=== PATIENT | female | born 1975 | race Caucasian/White ===

== ENCOUNTER 2016-10-21 02:56 | Emergency (ER) | payer MEDICAID ==
[~2016-10-21] VITALS: Ht 157.5 cm; Wt 111.5 kg
[~2016-10-21 02:56] MED LIST: FEXO180T61 PO
[2016-10-21 03:03] VITALS: Ht 157.5 cm; Wt 111.5 kg
[2016-10-21 03:37] LABS: URINE BLOOD (Dip) POC Trace-intact (NEGATIVE)
[2016-10-21] MEDS ORDERED: SOD CHLORIDE 0.9% 1,000 ML IV STA (03:39)
[2016-10-21] MEDS ORDERED: KETOROLAC 15 MG INJ IV STA (03:39)
[2016-10-21] MEDS ORDERED: ONDANSETRON 4 MG INJ IV STA (03:39)
--- NOTE | 2016-10-21 03:54 | ERD ---
ER Documentation Chief Complaint Date/Time DATE: 10/21/16 TIME: 03:49 Chief Complaint epigastric pain w/ vomiting ans diarrhea since 6 hours ago HPI This is a 41-year-old female history of morbid obesity who presents the emergency room with epigastric abdominal pain. She describes approximately 6 hours of symptoms that include multiple episodes of nonbloody nonbilious emesis with loose watery stool and mild cramping periumbilical and epigastric abdominal discomfort. No recent travel, sick contacts, antibiotics. She denies abdominal surgical history other than . No fever chest pain or pleuritic pain. ROS All systems reviewed and are negative except as per history of present illness. Medications Home Meds Active Scripts Ibuprofen* (Motrin*) 800 Mg Tab, 800 MG PO Q6H Y for PAIN AND OR ELEVATED TEMP, #30 TAB Prov:LAURA TARIQ MD 10/21/16 Ondansetron (Ondansetron Odt) 4 Mg Tab.rapdis, 4 MG PO Q6H Y for NAUSEA AND/OR VOMITING, #30 TAB Prov:LAURA TARIQ MD 10/21/16 Dicyclomine Hcl* (Bentyl*) 10 Mg Capsule, 10 MG PO QID Y for abdominal cramping , #30 CAP Prov:LAURA TARIQ MD 10/21/16 Fexofenadine Hcl* (Rosalinda*) 180 Mg Tablet, 180 MG PO DAILY, #30 TAB Prov:MIGUEL LOO NP 04/25/16 Allergies Allergies: Coded Allergies: No Known Allergy (Unverified , 11/26/13) PMhx/Soc History of Surgery: Yes (c-sections) Anesthesia Reaction: No Hx Neurological Disorder: No Hx Respiratory Disorders: No Hx Cardiac Disorders: No Hx Psychiatric Problems: No Hx Miscellaneous Medical Probl: No Hx Alcohol Use: No Hx Substance Use: No Hx Tobacco Use: No Smoking Status: Never smoker FmHx Family History: No diabetes Physical Exam Vitals Vital Signs Date Time Temp Pulse Resp B/P Pulse Ox O2 Delivery O2 Flow Rate FiO2 10/21/16 03:03 98.3 111 20 132/62 99 Physical Exam General: Well developed, well nourished, no acute distress Head: Normocephalic, atraumatic. Eyes: Pupils equally reactive, EOM intact ENT: Moist mucous membranes Neck: Supple, no lymphadenopathy Respiratory: Lungs clear bilaterally, no distress Cardiovascular: RRR, no murmurs, rubs, or gallops Abdominal: Soft, mild epigastric tenderness without rebound or guarding, negative Espino sign, no tenderness to McBurney's point : Deferred MSK: No edema, no unilateral swelling, 5/5 strength Neurologic: Alert and oriented, moving all extremities, normal speech, no focal weakness, no cerebellar signs Skin: No rash Psych: Normal mood Results 24 hrs Laboratory Tests Test 10/21/16 03:37 Bedside Urine pH (LAB) 5.5 Bedside Urine Protein (LAB) 1+ Bedside Urine Glucose (UA) Negative Bedside Urine Ketones (LAB) 1+ Bedside Urine Blood Trace-intact Bedside Urine Nitrite (LAB) Negative Bedside Urine Leukocyte Esterase (L Negative Current Medications Medications (Trade) Dose Ordered Sig/Binta Route PRN Reason Start Time Stop Time Status Last Admin Dose Admin Sodium Chloride (NS) 1,000 ml @ 1,000 mls/hr Q1H STAT IV 10/21/16 03:39 10/21/16 04:38 DC 10/21/16 03:47 Ondansetron HCl (Zofran Inj) 4 mg ONCE STAT IV 10/21/16 03:39 10/21/16 03:43 DC 10/21/16 03:47 Ketorolac Tromethamine (Toradol) 15 mg ONCE STAT IV 10/21/16 03:39 10/21/16 03:43 DC 10/21/16 03:47 Lorazepam (Ativan) 0.5 mg ONCE ONCE IV 10/21/16 04:00 10/21/16 04:01 DC 10/21/16 03:48 Dicyclomine HCl (Bentyl) 10 mg ONCE ONCE IM 10/21/16 04:00 10/21/16 04:01 DC 10/21/16 04:06 Procedures/MDM LAB INTERPRETATION: Negative hCG MEDICAL DECISION MAKING: The patient presents with nausea vomiting diarrhea and abdominal pain. Her abdominal exam is mostly benign. She has no fever. I do not believe this is consistent with acute intra-abdominal process such as biliary colic, choledocholithiasis, pancreatitis, acute appendicitis, bowel obstruction. The patient appears to be anxious which is also contributing to her presentation. Given her benign abdominal exam without fever and most likely viral process I do not believe that laboratory testing is necessary. Additionally no indication for CT imaging. The patient will benefit from symptom control and expectant management of likely viral process. ER COURSE: The patient was given IV fluids, Ativan, Zofran, Toradol, Bentyl. She has improved symptomatology. At this time I believe the patient can be safely discharged home with symptom control. We discussed return precautions for any worsening symptoms, difficulty tolerating oral intake or decreased urine output. I kept the patient and/or family informed of laboratory and diagnostic imaging results throughout the emergency room course. DISPOSITION PLAN: We discussed follow up with the patient's primary care doctor within 24 to 48 hours as needed. We also discussed return to the emergency room for worsening symptoms or worsening condition. Outpatient referral: [None required] Discharge Medications: Zofran, Bentyl, Motrin Departure Diagnosis: Primary Impression: Nausea vomiting and diarrhea Additional Impression: Epigastric abdominal pain Condition: Stable LAURA TARIQ MD Oct 21, 2016 03:54
[2016-10-21] MEDS ORDERED: DICY10CA60 PO (03:55)
[2016-10-21] MEDS ORDERED: ONDA4TAB14 PO (03:55)
[2016-10-21] MEDS ORDERED: IBUP800T25 PO (03:55)
[2016-10-21] MEDS ORDERED: LORAZEPAM 2 MG INJ IV ONE (04:00)
[2016-10-21] MEDS ORDERED: DICYCLOMINE 20 MG INJ IM ONE (04:00)
[2016-10-21 04:53] VITALS: BP 105/76; PULSE 89; RESP 20; TEMP 98.3
== END 2016-10-21 04:55 | disposition home or self-care (01) ==
LOC: E/R 02:56
DX: R11.2 Nausea with vomiting, unspecified (principal); R19.7 Diarrhea, unspecified
CPT/HCPCS: 81003; 96372; 96374; 96375; J0500; J1885; J2060; J2405; J7030; Z7502

== ENCOUNTER 2016-10-24 01:12 | Emergency (ER) | payer MEDICAID ==
[~2016-10-24] VITALS: Ht 160 cm; Wt 110.0 kg
[~2016-10-24 01:12] MED LIST changes: +DICY10CA60 PO; +IBUP800T25 PO; +ONDA4TAB14 PO
[2016-10-24 01:30] VITALS: Ht 160 cm; Wt 110.0 kg
[2016-10-24] MEDS ORDERED: ONDANSETRON (ODT) 4 MG TAB ODT STA (01:56)
[2016-10-24] MEDS ORDERED: LIDOCAINE/MYLANTA 40 ML BTL PO ONE (02:00)
[2016-10-24] MEDS ORDERED: TYL500 PO (02:02)
[2016-10-24] MEDS ORDERED: FAMO-18 PO (02:02)
[2016-10-24] MEDS ORDERED: ONDA4TAB8 PO (02:02)
--- NOTE | 2016-10-24 02:20 | ERD ---
ER Documentation Chief Complaint Date/Time DATE: 10/24/16 TIME: 02:16 Chief Complaint upper abd pain since 3 hours ago, vomiting HPI This is a 41-year-old female that presents to the ER for nausea vomiting and diarrhea. Patient was seen here 2 days ago and states she was given medications which made her feel better, however she still continues to have epigastric pain with mild vomiting. Vomiting is nonbilious nonbloody. Diarrhea has resolved. Patient is upset because " we did not admit her, and that because of that her children got sick." Patient denies any urinary frequency or dysuria. No fever or chills. ROS 12 point review of systems was done, all negative except per HPI. Medications Home Meds Active Scripts Acetaminophen* (Tylenol*) 500 Mg Tab, 500 MG PO Q4H Y for MILD PAIN LEVEL 1-3 for 3 Days, TAB Prov:WICHO PEDROZA 10/24/16 Famotidine* (Pepcid*) 20 Mg Tablet, 20 MG PO BID for 4 Days, TAB Prov:WICHO PEDROZA 10/24/16 Ondansetron Hcl* (Zofran*) 4 Mg Tablet, 4 MG PO Q6H for NAUSEA AND/OR VOMITING, #30 TAB Prov:WICHO PEDROZA 10/24/16 Ibuprofen* (Motrin*) 800 Mg Tab, 800 MG PO Q6H Y for PAIN AND OR ELEVATED TEMP, #30 TAB Prov:LAURA TARIQ MD 10/21/16 Ondansetron (Ondansetron Odt) 4 Mg Tab.rapdis, 4 MG PO Q6H Y for NAUSEA AND/OR VOMITING, #30 TAB Prov:LAURA TARIQ MD 10/21/16 Dicyclomine Hcl* (Bentyl*) 10 Mg Capsule, 10 MG PO QID Y for abdominal cramping , #30 CAP Prov:LAURA TARIQ MD 10/21/16 Fexofenadine Hcl* (Rosalinda*) 180 Mg Tablet, 180 MG PO DAILY, #30 TAB Prov:MIGUEL LOO, JEFFERSON 04/25/16 Allergies Allergies: Coded Allergies: No Known Allergy (Unverified , 11/26/13) PMhx/Soc Medical and Surgical Hx: pt denies Medical Hx History of Surgery: Yes (c-sections) Anesthesia Reaction: No Hx Neurological Disorder: No Hx Respiratory Disorders: No Hx Cardiac Disorders: No Hx Psychiatric Problems: No Hx Miscellaneous Medical Probl: No Hx Alcohol Use: No Hx Substance Use: No Hx Tobacco Use: No Smoking Status: Never smoker Physical Exam Vitals Vital Signs Date Time Temp Pulse Resp B/P Pulse Ox O2 Delivery O2 Flow Rate FiO2 10/24/16 01:30 98.3 82 20 133/80 100 Physical Exam GENERAL: The patient is well-developed, well-nourished, in no acute distress. NECK: Cervical spine is non tender with no step off. Supple, no nuchal rigidity HEENT: Atraumatic. Pupils equal, round and reactive to light. Extraocular muscles are grossly intact. Conjunctivae pink, no discharge. The oropharynx is clear with no erythema or exudates and the mucosa is moist. No signs of dehydration. RESPIRATORY: Clear to auscultation bilaterally. There are no rales, wheezes or rhonchi. There is no inspiratory stridor or retractions. No flaring/retractions. HEART: Regular rate and rhythm. No murmurs, clicks, rubs or gallops. ABDOMEN: Soft, nontender, nondistended. Active bowel sounds in all 4 quadrants. No rebounding or guarding. Negative McBurney point tenderness. NEUROLOGIC: Alert and oriented. SKIN: There is no rash. The skin is warm and dry. Normal capillary refill. Results 24 hrs Current Medications Medications (Trade) Dose Ordered Sig/Binta Route PRN Reason Start Time Stop Time Status Last Admin Dose Admin Ondansetron HCl (Zofran Odt) 4 mg ONCE STAT ODT 10/24/16 01:56 10/24/16 01:57 DC 10/24/16 02:09 Miscellaneous Medication (Gi Cocktail (2)) 40 ml ONCE ONCE PO 10/24/16 02:00 10/24/16 02:01 DC 10/24/16 02:09 Procedures/MDM Differential Diagnosis includes but is not limited to; Acute gastroenteritis, post-tussive vomiting, small bowel obstruction, appendicitis, DKA, ICH, meningitis. This is likely viral gastroenteritis. Patient appears well hydrated and successfully tolerated PO challenge. Clinical suspicion for infectious etiology such as meningitis is low as patient does not appear toxic. Clinical suspicion for acute abdomen is low as physical examination is benign. Plan was discussed with patient, they understand agree. Patient needs to follow up with PCP within 1-2 days, or return to ER if symptoms worsen. Departure Diagnosis: Primary Impression: Nausea vomiting and diarrhea Condition: Stable Patient Instructions: Gastroenteritis, Viral (6Y-Adult) Additional Instructions: Llame al doctor MAANA y ganga lisa NARDA PARA DENTRO DE 1-2 BRIAN.Dgale a la secretaria que nosotros le instruimos hacer esta narda.Avise o llame si stewart condicin se empeora antes de la narda. Regresa aqui si peor o no mejor. WICHO PEDROZA Oct 24, 2016 02:20
[2016-10-24] MEDS ORDERED: HYDROCODONE/APAP (5/325) TAB PO ONE (03:30)
== END 2016-10-24 03:21 | disposition home or self-care (01) ==
LOC: FTE 01:12
DX: R11.2 Nausea with vomiting, unspecified (principal); R19.7 Diarrhea, unspecified
CPT/HCPCS: Z7502; Z7610; 99283

== ENCOUNTER 2018-05-24 21:28 | Emergency (ER) | END 2018-05-25 03:19 | disposition home or self-care (01) ==